=== PATIENT | male | born 1965 | race Caucasian/White ===

== ENCOUNTER 2017-01-10 06:47 | Day surgery (SDC) | payer OTHER ==
--- NOTE | 2017-01-09 10:05 | PCM.ANEPRE ---
Anesthesia Pre-Op Review Reason for Review: BMI >45 SURGEON PLANS SEDATION & DIGITAL BLOCK Anesthesia Recommendations: Proceed with Procedure Additional Comments pt with BMI 48. surgeon plans no sedation and digital block. Isac Martinez MD Jan 09, 2017 10:05
[~2017-01-10] VITALS: Ht 182.9 cm; Wt 160.2 kg
[2017-01-10] MEDS: Lactated Ringer's 1,000 ML IV SCH ×2 (06:45→08:30)
[~2017-01-10 06:47] MED LIST: INTE30PE3 IM
[2017-01-10] MEDS ORDERED: fentaNYL-PF 50 mCg/mL 2 mL Inj ONE (06:48)
[2017-01-10] MEDS ORDERED: Propofol 10,000 mCg/mL 20 mL Inj ONE (06:48)
[2017-01-10 07:10] VITALS: BP 140/84; PULSE 59; RESP 16; O2SAT 97
[2017-01-10 07:35] VITALS: BP 140/84; PULSE 59; RESP 16; O2SAT 97
--- NOTE | 2017-01-10 07:58 | PCM.HPANE ---
Patient Data Date of Service: Jan 10, 2017 Surgeon Admitting Provider: Attending Provider:Yuan Maurer MD Primary Care Physician:Durga Other Provider:Orlando Ford Anesthesia Reason for Visit Right Long Finger Mucous Cyst Ht/WT & BMI Height (Feet): 6 Height (Inches): 0.00 Weight (Kilograms): 160.200 Body Mass Index 47.00 Allergies Coded Allergies: No Known Allergies (Unverified , 01/08/17) Past Anesthesia History Anesthesia History: Denies:: Fam Anesthesia Reaction, Fam Malignant Hypertherm Diabetes History Hx Diabetes?: No MRSA MRSA: No Medications Hypertension Medication: No Home Meds Incl Beta Braulio: No Reported Medications Interferon Beta-1A (Avonex Pen)30 Mcg/0.5 Ml Pen.ij.kit30 Mcg IM WEEKLY 01/08/17 History History of ENT Problems?: Yes HEENT History: Positive for:: Sinus Problem (HX MAXILLARY SINUSITIS) Hx of Heart Problems?: No Cardiovascular History: Denies:: Heart Murmur Hypertension Hx of Respiratory Problem?: No Respiratory History: Denies:: Use of C-PAP Machine Hx Neurologic Problems?: Yes Neurological History: Positive for:: Multiple Sclerosis (DX 2009;FOLLOWED BY NEUROLOGY @ [facility]) Hx of GI Problems?: No Hx of Problems?: No Male Hx: Denies:: Prostate Problems Scrotal Mass Testicular Surgery Skin History: Denies:: History Skin Disorders? Pressure Ulcers Hx Musculoskeletal Problems?: Yes Hx of Psycho/Social Problems?: No Hx Surgeries?: No Hx Any Other Health Problems?: No Other History: Denies:: Cancer Endocrine Disease Hospitalization Thyroid Disease Hx Diabetes: No Have You Smoked inLast 12 mo: No Stop/Bang S-Snoring: Do You Snore Loudly: No T-Tired: feel tired, fatigued: No O-Obsered: Observed not breath: No P-Blood Pressure: treated: No B- Body Mass Index > 35 kg/m2: Yes A- Age over 50: Yes N- Neck Large Circumference: Yes G- Gender Male: Yes CIELO Total Score: 4 CIELO Risk Assessment: High Risk, =/>3 Yes CIELO Category 4 OutPt Procedure: Yes Risk Assessment Category Category 1A: Patient has history of documented sleep apnea, and HAS NOT received any narcotic, sedative or anesthesia administration during this stay. Category 1B: Patient has history of documented sleep apnea, and HAS received any narcotic , sedative or anesthesia administration during this stay Category 2: Patient has SUSPECTED Obstructive Sleep Apnea, and HAS received any narcotic , sedative or anesthesia administration during this stay. Category 3: Patient has SUSPECTED Obstructive Sleep Apnea and HAS NOT received narcotic, sedative or anesthesia administration during this stay. Category 4: Outpatient in Procedural Areas with known sleep apnea or who screen positive for High Risk via the STOP/BANG questionnaire. Exam Exam Vital Signs Vital Signs Date Time Temp Pulse Resp B/P Pulse Ox O2 Delivery O2 Flow Rate FiO2 01/10/17 07:35 35.8 59 16 140/84 97 Room Air 01/10/17 07:10 35.8 59 16 140/84 97 Room Air General Appearance: Alert, Oriented X3, Cooperative, No Acute Distress HEENT/AIRWAY: MP 3, Neck Movement (from), Mouth Opening (3 FB), Other (tmd >3 FB) Lungs: Clear to Auscultation, Normal Air Movement Heart: Exam Unremarkable, Regular Rate/Rhythm, No Murmurs/Rubs/Gallops Meds/Labs/Diagnostics Admission Meds Current Medications Lactated Ringer's (Lr) 1,000 ml @ 120 mls/hr Q8H20M IV Last administered on t 06:45; Start 01/10/17 at 05:00; Stop 01/10/17 at 13:19 Plan Impression Patient chart reviewed, patient interviewed and anesthestic plan with risks, benefits, and alternatives discussed, and informed consent obtained. NPO Status: 9pm ASA Physical Status: ASA3 Severe Disease (morbid obesity, multiple sclerosis) Anesthetic Plan: MAC (with local digital block) Bene/Risks/Altern/Consents: Yes HP Complete Prior to Induction: Yes Jim Bustamante MD Jan 10, 2017 07:58
[2017-01-10] MEDS: CeFAZolin Inj 3 GM in IV Premix 1 EACH IV ONE ×2 (09:17→10:05)
[2017-01-10] MEDS ORDERED: Bupivacaine-MPF 0.5% 30 mL Inj INFILTRATE ONE (10:09)
[2017-01-10] MEDS ORDERED: Lactated Ringer's 500 ML IV PRN (10:32)
[2017-01-10] MEDS ORDERED: Lactated Ringer's 1,000 ML IV SCH (10:32)
[2017-01-10] MEDS ORDERED: Labetalol 5 mg/mL 4 mL Inj IV PRN (10:35)
[2017-01-10] MEDS ORDERED: Dexamethasone 4 mg/mL Inj IVPUSH PRN (10:35)
[2017-01-10] MEDS ORDERED: Ondansetron 2 mg/mL 2 mL Inj IVPUSH PRN (10:35)
[2017-01-10] MEDS ORDERED: Phenylephrine 10,000 mCg/mL Inj IVPUSH PRN (10:35)
[2017-01-10] MEDS ORDERED: EPHEDrine Sulfate 50 mg/mL Inj IVPUSH PRN (10:35)
[2017-01-10] MEDS ORDERED: fentaNYL-PF 50 mCg/mL 2 mL Inj IVPUSH PRN (10:35)
[2017-01-10] MEDS ORDERED: MetoCLOpramide 5 mg/mL 2 mL Inj IVPUSH PRN (10:35)
[2017-01-10] MEDS ORDERED: Atropine 0.4 mg/mL Inj IVPUSH PRN (10:35)
[2017-01-10] MEDS ORDERED: hydrALAZINE 20 mg/mL Inj IVPUSH PRN (10:35)
[2017-01-10] MEDS ORDERED: HYDROmorphone 1 mg/mL Inj IVPUSH PRN (10:35)
[2017-01-10 11:21] VITALS: BP 123/83; PULSE 70; RESP 16; O2SAT 96
[2017-01-10] MEDS ORDERED: oxyCODONE-Acetamin 5-325 mg Tablet PO PRN (11:30)
[2017-01-10 11:48] VITALS: BP 132/82; PULSE 70; RESP 16; O2SAT 97
--- NOTE | 2017-01-10 12:19 | PCM.ANEP1 ---
Post Anesthesia Phase 1 PACU Phase 1 Assessment Date of Service: Jan 10, 2017 Vital Signs Vital Signs Date Time Temp Pulse Resp B/P Pulse Ox O2 Delivery O2 Flow Rate FiO2 01/10/17 11:48 70 16 132/82 97 Room Air 01/10/17 11:21 36.2 70 16 123/83 96 Room Air 01/10/17 07:35 35.8 59 16 140/84 97 Room Air 01/10/17 07:10 35.8 59 16 140/84 97 Room Air Anesthetic Administered: MAC Level of Alertness: Awake, talking CUI's with Equal Strength: Yes Pain: No Nausea or Vomiting: No Oxygen Delivery: Room Air Lungs: Clear to Auscultation, Normal Air Movement Dermatome Level: Full Sensation Jim Bustamante MD Jan 10, 2017 12:18
--- NOTE | 2017-01-10 12:19 | PCM.ANEP2 ---
Post Anesthesia Evaluation ASA/CMS Post Anesthesia Date of Service: Jan 10, 2017 VS in Patient's Normal Range?: Yes Resp Stable; Airway Patent?: Yes CV Function & Hydration Stable: Yes Mental Status Recovered?: Yes Pain control Satisfactory?: Yes N/V Control Satisfactory?: Yes Jim Bustamante MD Jan 10, 2017 12:19
--- NOTE | 2017-01-10 14:32 | OP ---
[address] [address] OPERATIVE REPORT PATIENT: CHONG GRAMAJO : 1965 MR#: [id number] ADMIT: 01/10/2017 JOB ID: [id number] DATE OF SURGERY: 01/10/2017 PREOPERATIVE DIAGNOSIS(ES): Right long finger mucous cyst, distal aspect of the distal interphalangeal joint dorsally. ICD 10 code M67.449. POSTOPERATIVE DIAGNOSIS(ES): Right long finger mucous cyst, distal aspect of the distal interphalangeal joint dorsally. PROCEDURE: Removal right long finger mucous cyst. CPT code 00657. SURGEON: Yuan Maurer MD. SALES ATTENDANT: None. ANESTHESIA: Metacarpal nerve block performed by surgeon and IV sedation by Anesthesia. Tourniquet utilized. ESTIMATED BLOOD LOSS: Less than 2 mL. DRAINS: None. COMPLICATIONS: None. INDICATIONS: This is a 51-year-old male with history of multiple sclerosis and a painful cyst over the dorsal aspect of the right long finger over the ulnar aspect just proximal to the eponychial fold. The patient does have some mild underlying arthritis. PROCEDURE: After appropriate time-out was called I cleansed the hand and performed a metacarpal nerve block with 0.5% plain Marcaine and the patient had been given some gentle IV sedation. A well-padded pretested tourniquet was applied to the right upper extremity. The right arm was prepped and draped in sterile fashion. The arm was elevated, exsanguinated, tourniquet inflated to 250 mmHg. A distally placed skin flap was placed over the dorsal aspect, DIP joint of the long finger. Image intensification was used to confirm the exposure down to the joint. The patient had a very small amount of arthritis at that level. Skin flap was carefully elevated. The cyst was elevated off the skin flap, but it was not cut out entirely due to the proximity of the cyst to the skin the proximity of the cyst to the eponychial fold. This cyst was debrided sharply. A small specimen was sent to Pathology. Incisions were made over the radial and ulnar aspect of the DIP joint. This was taken down to the joint and a small rasp was utilized to smooth down a small dorsal osteophyte over the distal portion of the middle phalanx at the level the DIP joint. This was also done to decrease risk for recurrence by doing an arthrotomy on both radial and ulnar sides of the joint at the DIP joint. The wound was irrigated with saline. Tourniquet was released. Minimal hemostasis required. Skin was reapproximated with horizontal mattress sutures of 4-0 nylon. Xeroform and dry sterile bulky dressing was applied. The patient was taken to recovery room in stable condition. Sponge and needle count correct. No complications. PLAN: The patient is to keep the finger clean and dry. Will see him back in followup in two weeks for suture removal. I have completed a work note for him such that he could go back to doing light duty but should not wear any rubber gloves over that finger at this time. CC: [facility]
--- NOTE | 2017-01-13 16:05 | PATH ---
SURGICAL PATHOLOGY Attending Physician:Dodie Reddy CASE STATUS: Signed Out PATIENT NAME: CHONG GRAMAJO PID: [id number] : 1965 DATE COLLECTED:01/10/2017 22:26 SPECIMEN: Skin, Cyst CLINICAL HISTORY: MUCOUS CYST RIGHT LONG FINGER 1). MUCOUS CYST RIGHT LONG FINGER SACK - PORTION FINAL DIAGNOSIS: Right Long Finger, "Mucous cyst", Biopsy: Consistent with ganglion cyst. ICD10: M67.441 GROSS DESCRIPTION: The specimen is received in one formalin filled container labeled with the patient's name, sublabeled "mucous cyst right long finger" and consists of 2 portions of tissue which aggregate to 0.3 x 0.3 x 0.2 CM. The specimen is entirely submitted in one cassette. 01/10/2017 [facility] ICD-9 CODES: CPT CODES: 1: 75956 Electronically Signed Out Adelita Lawrence MD [facility] Pathology [facility] [address], [place] [address] Technical component performed at [facility], [address] [place] [address] Ave[address], [place], [address]
== END 2017-01-10 23:59 | disposition home or self-care (01) ==
LOC: SAS 06:47
PROVIDERS: ATTEND Orthopaedic Surgery
DX: M67.441 Ganglion, right hand (principal); G35 Multiple sclerosis; E66.9 Obesity, unspecified; Z68.42 Body mass index [BMI] 45.0-49.9, adult
CPT/HCPCS: 26160; J0690; J2250; J3010; J7120